=== PATIENT | female | born 1985 | race Caucasian/White ===

== ENCOUNTER 2019-08-26 13:01 | Emergency (ER) | payer OTHER ==
[2019-08-26 15:39] VITALS: BP 108/53
--- NOTE | 2019-08-26 15:44 | UC ---
Throat Pain/Nasal Simone HPI - HPI Summary HPI Summary: 33 yo female presents with cough and sore throat. She tells me that for the last 6 days she has had a sore throat and intermittently productive cough. Her sore throat is improving, but is still having a cough. She felt feverish last night, but did not take her temperature. Denies rash, abdominal pain, n/v, back pain. Does not smoke. Has been taking OTC cold medicine with little relief. - History of Current Complaint Chief Complaint: UCRespiratory Stated Complaint: SORE THROAT Time Seen by Provider: 08/26/19 15:44 Hx Obtained From: Patient Hx Last Menstrual Period: 08/18 Onset/Duration: Gradual Onset Severity: Mild Pain Intensity: 4 Pain Scale Used: 0-10 Numeric - Allergies/Home Medications Allergies/Adverse Reactions: Allergies Allergy/AdvReac Type Severity Reaction Status Date / Time No Known Allergies Allergy Verified 08/26/19 15:39 Home Medications: Home Medications Valacyclovir HCl [Valacyclovir] 500 mg PO 08/26/19 [History] PMH/Surg Hx/FS Hx/Imm Hx - Additional Past Medical History Additional PMH: None - Surgical History Surgical History: Yes Surgery Procedure, Year, and Place: wisdom teeth - Family History Known Family History: Positive: None - Social History Occupation: Employed Full-time Lives: With Family Alcohol Use: Weekly Alcohol Amount: 2 x weekly Substance Use Type: Marijuana Substance Use Comment - Amount & Last Used: occasionally Smoking Status (MU): Never Smoked Tobacco - Immunization History Most Recent Influenza Vaccination: no Review of Systems All Other Systems Reviewed And Are Negative: No Constitutional: Positive: Negative Skin: Positive: Negative Eyes: Positive: Negative ENT: Positive: Sore Throat, Nasal Discharge Respiratory: Positive: Cough Cardiovascular: Positive: Negative Gastrointestinal: Positive: Negative Neurovascular: Positive: Negative Neurological: Positive: Negative Psychological: Positive: Negative Physical Exam - Summary Physical Exam Summary: GENERAL: NAD. WDWN. No pain distress. SKIN: No rashes, sores, lesions, or open wounds. HEENT: Head: AT/NC Eyes: EOM intact. Conjunctiva clear without inflammation or discharge. Ears: Hearing grossly normal. TMs intact, no bulging, erythema, or edema. Nose: Nasal mucosa pink and moist. NTTP maxillary and frontal sinus. Throat: Posterior oropharynx without exudates, erythema, or tonsillar enlargement. Uvula midline. NECK: Supple. Nontender. No lymphadenopathy. CHEST: CTAB. No accessory muscle use. Breathing comfortably and in no distress. CV: RRR. Pulses intact. Cap refill <2seconds NEURO: Alert. PSYCH: Age appropriate behavior. Triage Information Reviewed: Yes Vital Signs: Initial Vital Signs Temp 97.1 F 08/26/19 15:33 Pulse 55 08/26/19 15:33 Resp 18 08/26/19 15:33 BP 108/53 08/26/19 15:33 Pulse Ox 100 08/26/19 15:33 Vital Signs Reviewed: Yes Diagnostics - Radiology CXR Radiology Interpretation Completed By: Radiologist Summary of Radiographic Findings: IMPRESSION: 1. No acute cardiopulmonary process by radiograph. 2. There is either a vessel on end or 6 mm pulmonary nodule in the right lower lung zone. Throat Pain/Nasal Course/Dx - Course Course Of Treatment: CXR as above. Exam WNL and afebrile - suspect viral illness. Discussed lung nodule vs vessel with pt. Advised f/u in 1 month with PCP for recheck - Differential Dx/Diagnosis Provider Diagnosis: Cough Discharge ED - Sign-Out/Discharge Documenting (check all that apply): Patient Departure All imaging exams completed and their final reports reviewed: No Studies - Discharge Plan Condition: Stable Disposition: HOME Prescriptions: Benzonatate CAP* [Tessalon 100 MG CAP*] 100 mg PO TID PRN #[id number] cap PRN Reason: Cough Patient Education Materials: Viral Syndrome (ED) Referrals: Татьяна Rucker MD [Primary Care Provider] - Additional Instructions: Your symptoms are likely from a viral infection. Viral infections do not respond to antibiotics and are limited to the treatment of symptoms. Viral infections typically run their course in 7-10 days. Drink plenty of fluids, especially if you are running any fever. Use salt water gargles several times a day. Take over the counter acetaminophen (Tylenol) or ibuprofen (Advil, Motrin) according to directions as needed for pain or fever. You may also use Chloraseptic spray or Cepacol lonzenges according to directions which contain a numbing medication and can provide some temporary relief from a sore throat. Return here or follow up with your primary care provider in 7 days if symptoms persist. There was a spot on your chest x-ray that could be a shadow/vessel or a lung nodule. I recommend you have this rechecked by your PCP in 1 month - Billing Disposition and Condition Condition: STABLE Disposition: Home
== END 2019-08-26 16:51 | disposition home or self-care (01) ==
LOC: UCEAST 13:01
DX: R05 Cough (principal); J02.9 Acute pharyngitis, unspecified; J34.89 Other specified disorders of nose and nasal sinuses
CPT/HCPCS: 71046; 99202; G0463